=== PATIENT | male | born 1960 | race Hispanic/Latino ===

== ENCOUNTER 2018-06-05 05:46 | Day surgery (SDC) | payer OTHER ==
[2018-06-03 11:41] LABS: APPEARANCE,URINE Clear (CLEAR); BILIRUBIN,URINE Negative (NEGATIVE); COLOR,URINE Yellow (YELLOW); GLUCOSE, URINE (UA) >=1000 mg/dL (NEGATIVE); KETONES,URINE Trace mg/dL (NEGATIVE); LEUKOCYTE ESTERASE ,URINE Negative (NEGATIVE); NITRATE,URINE Negative (NEGATIVE); OCCULT BLOOD,URINE Negative (NEGATIVE); PROTEIN,URINE POS 2+ (NEGATIVE)
[2018-06-03 11:42] LABS: CREATININE 1.4 mg/dL (0.5-1.5); POTASSIUM 4.4 mmol/L (3.5-5.1)
[2018-06-03 11:45] LABS: PROTHROMBIN TIME 9.9 SEC (9.6-11.6)
[2018-06-03 11:46] LABS: BASOPHILS % (AUTO) 0.9 % (0.0-5.0); EOSINOPHILS % (AUTO) 1.9 % (0.0-8.0); HEMATOCRIT 43.8 % (42-54); INR 0.94 (0.85-1.15); LYMPHOCYTES % (AUTO) 18.1 % (21.0-51.0); MEAN CORPUSCULAR HEMOGLOBIN 30.9 pg (27.0-33.0); MEAN CORPUSCULAR HGB CONC 33.4 g/dL (32.0-36.0); MEAN CORPUSCULAR VOLUME 92.4 fL (79-99); MONOCYTES % (AUTO) 6.3 % (3.0-13.0); NEUTROPHILS % (AUTO) 72.8 % (40.0-77.0); PARTIAL THROMBOPLASTIN TIME 27.9 SEC (26.3-35.5); PLATELET COUNT (AUTO) 195 K/uL (130-400); RED BLOOD CELL COUNT(AUTO) 4.74 MIL/uL (4.50-6.20); RED CELL DISTRIBUTION WIDTH 14.8 % (11.0-15.5); WHITE BLOOD COUNT (AUTO) 6.3 K/uL (4.8-10.8)
[2018-06-03 12:01] LABS: BACTERIA,URINE Rare /HPF (None Seen); MUCUS,URINE Rare LPF (None Seen); RBC,URINE 0-1 /HPF (0-1); SQUAMOUS EPITHELIAL CELL,UR Rare /HPF (0-2); WBC,URINE 0-1 /HPF (0-1)
[2018-06-03 12:29] VITALS: BP 136/80
[2018-06-05] VITALS (10 sets, daily range): BP systolic 125–155; BP diastolic 87–109
[~2018-06-05] VITALS: Ht 179.1 cm; Wt 117.9 kg
[~2018-06-05 05:46] MED LIST: AEC81 PO; ATOR10TA69 PO; DILT180C51 PO; FARXIGA; FURO20TA6 PO; HYDR-4154 PO; ISOS30TA6 PO; LISI-613 PO; METF-444 PO; METOPROLOL ER PO; SPIRONOLACTONE
[2018-06-05] MEDS ORDERED: SODIUM CHLORIDE 0.9% 1000ML 1,000 ML IV SCH (06:00)
[2018-06-05] MEDS ORDERED: SODIUM CHLORIDE 0.9% 500ML 500 ML IV SCH (06:00)
[2018-06-05] MEDS ORDERED: SPIR50TA5 PO (07:13)
[2018-06-05] MEDS ORDERED: DAPA10TA PO (07:13)
[2018-06-05] MEDS ORDERED: METOPROLOL TARTRATE 25 MG TAB PO SCH (07:30)
[2018-06-05] MEDS ORDERED: HEPARIN SODIUM 1000UNIT/ML 10ML VIAL ONE (12:13)
[2018-06-05] MEDS ORDERED: SODIUM BICARB 50MEQ 50ML VIAL ONE (12:13)
[2018-06-05] MEDS ORDERED: NITROGLYCERIN 5 MG/ML 10 ML VIAL IV ONE (12:13)
[2018-06-05] MEDS ORDERED: IOHEXOL 350 MG/ML 100ML INFUS..BTL IV ONE (12:14)
[2018-06-05] MEDS ORDERED: IOHEXOL-350 50ML VIAL IV ONE (12:14)
[2018-06-05] MEDS ORDERED: LIDOCAINE HCL 2% 20ML ONE (12:14)
[2018-06-05] MEDS ORDERED: MEPERIDINE-PF 25 MG/ML SYG ONE ×2 (12:39→12:53)
[2018-06-05] MEDS ORDERED: MIDAZOLAM HCL 1 MG/ML 2ML VIAL ONE ×2 (12:39→12:53)
[2018-06-05] MEDS ORDERED: DEXTROSE 50%-WATER 50 ML DISP.SYRIN IV PRN (13:30)
[2018-06-05] MEDS ORDERED: GLUCAGON 1MG KIT 1 MG ML IM PRN (13:30)
[2018-06-05] MEDS ORDERED: SODIUM CHLORIDE 0.9% 10 ML VIAL IVP SCH (13:30)
[2018-06-05] MEDS ORDERED: INSULIN HUMULIN R 100 UNIT/ML 3ML SQ SCH (16:30)
== END 2018-06-05 17:35 | disposition home or self-care (01) ==
LOC: DAH 05:46
PROVIDERS: ATTEND Internal Medicine Cardiovascular Disease
DX: I25.118 Atherosclerotic heart disease of native coronary artery with other forms of angina pectoris (principal); Z79.899 Other long term (current) drug therapy; Z79.84 Long term (current) use of oral hypoglycemic drugs; Z79.4 Long term (current) use of insulin; Z68.37 Body mass index [BMI] 37.0-37.9, adult; I48.2 Chronic atrial fibrillation; E66.9 Obesity, unspecified; G47.33 Obstructive sleep apnea (adult) (pediatric); Z79.01 Long term (current) use of anticoagulants; I25.5 Ischemic cardiomyopathy; Q25.46 Tortuous aortic arch
CPT/HCPCS: 36415; 71045; 80048; 81001; 82948 ×3; 85025; 85610; 85730; 93005; 93458; 93567; C1760; C1769; C1894; J1644; J2175 ×2; J2250 ×2; J3490 ×3; Q9965; Q9967 ×2; 99156; 99157

== ENCOUNTER 2019-01-15 07:40 | Observation (INO) | payer OTHER ==
[2019-01-13 10:47] VITALS: BP 173/95
[2019-01-13 10:49] LABS: BASOPHILS % (AUTO) 2.5 % (0.0-5.0); EOSINOPHILS % (AUTO) 2.3 % (0.0-8.0); HEMATOCRIT 45.4 % (42-54); LYMPHOCYTES % (AUTO) 11.4 % (21.0-51.0); MEAN CORPUSCULAR HEMOGLOBIN 31.5 pg (27.0-33.0); MEAN CORPUSCULAR HGB CONC 33.8 g/dL (32.0-36.0); MEAN CORPUSCULAR VOLUME 93.2 fL (79-99); MONOCYTES % (AUTO) 7.3 % (3.0-13.0); NEUTROPHILS % (AUTO) 76.5 % (40.0-77.0); PLATELET COUNT (AUTO) 179 K/uL (130-400); RED BLOOD CELL COUNT(AUTO) 4.88 MIL/uL (4.50-6.20); RED CELL DISTRIBUTION WIDTH 13.4 % (11.0-15.5); WHITE BLOOD COUNT (AUTO) 7.7 K/uL (4.8-10.8)
[2019-01-13 10:54] LABS: CREATININE 1.2 mg/dL (0.5-1.5); POTASSIUM 4.4 mmol/L (3.5-5.1)
[2019-01-13 11:38] LABS: INR 0.95 (0.85-1.15)
[~2019-01-15] VITALS: Ht 175.3 cm; Wt 119.0 kg
[~2019-01-15 07:40] MED LIST changes: +ALBU8.5H8 IH; +CEFAZOLIN SODIUM 1 GM VIAL IVP SCH; -DILT180C51 PO; -FARXIGA; -ISOS30TA6 PO; -METF-444 PO; +METO-409 PO; -METOPROLOL ER PO; +POTA20TA82 PO; +SODIUM CHLORIDE 0.9% 1000ML 1,000 ML IV SCH; +SPIR50TA5 PO; -SPIRONOLACTONE
[2019-01-15 08:14] VITALS: BP 138/93
[2019-01-15] MEDS ORDERED: EMPA1TAB21 PO (08:48)
[2019-01-15] MEDS ORDERED: ATOR40TA69 PO (08:48)
[2019-01-15] MEDS ORDERED: ISOS30TA6 PO (08:48)
[2019-01-15 13:45] VITALS: BP 132/99
[2019-01-15] MEDS ORDERED: CEFAZOLIN SODIUM 1 GM VIAL ONE (14:52)
[2019-01-15] MEDS ORDERED: IODIXANOL 320 MG/ML 100 ML VIAL ONE (14:53)
[2019-01-15] MEDS ORDERED: LIDOCAINE HCL 1% MDV 50ML VIAL ONE (14:53)
[2019-01-15] MEDS ORDERED: MIDAZOLAM HCL 1 MG/ML 2ML VIAL ONE ×3 (14:53→15:48)
[2019-01-15] MEDS ORDERED: MEPERIDINE-PF 25 MG/ML SYG ONE ×3 (14:53→15:48)
[2019-01-15] MEDS ORDERED: BUPIVACAINE/PF 0.25% 10ML VIAL IJ ONE (14:53)
[2019-01-15] MEDS ORDERED: METOPROLOL TARTRATE 1 MG/ML 5ML VIAL IV ONE ×3 (16:16→16:49)
[2019-01-15] MEDS ORDERED: OCTYL 2-CYANOACRYLATE 1 EACH TP ONE (16:31)
[2019-01-15] MEDS ORDERED: DIGOXIN 250 MCG/ML 2ML AMP ONE (17:02)
[2019-01-15] MEDS ORDERED: HYDRALAZINE HCL 25 MG TABLET PO PRN (17:15)
[2019-01-15] MEDS ORDERED: ACETAMINOPHEN 325 MG TAB PO PRN ×2 (17:15→20:30)
[2019-01-15] MEDS ORDERED: DIGOXIN 250 MCG/ML 2ML AMP IV SCH (17:15)
[2019-01-15] MEDS ORDERED: ONDANSETRON HCL 4 MG/2 ML VIAL IV PRN (17:15)
[2019-01-15] MEDS ORDERED: PHARMACY COMMUNICATION MISC SCH (20:00)
[2019-01-15 20:15] VITALS: BP 148/106
[2019-01-15] MEDS ORDERED: NITROGLYCERIN 0.4 MG SL TAB SL PRN (20:30)
[2019-01-15] MEDS ORDERED: GLUCAGON 1MG KIT 1 MG ML IM PRN (20:30)
[2019-01-15] MEDS ORDERED: DEXTROSE 50%-WATER 50 ML DISP.SYRIN IV PRN (20:30)
[2019-01-15] MEDS: INSULIN HUMULIN R 100 UNIT/ML 3ML SQ SCH (21:00)
[2019-01-15] MEDS ORDERED: ATORVASTATIN CALCIUM 40 MG TABLET PO SCH (21:00)
[2019-01-15] MEDS: LISINOPRIL 20 MG TABLET PO SCH (21:06)
[2019-01-15] MEDS: FAMOTIDINE 20MG TAB 20 MG TAB PO SCH (21:10)
[2019-01-15] MEDS: CEFAZOLIN SODIUM 1 GM VIAL IVP SCH (21:10)
[2019-01-15 23:18] VITALS: BP 153/110
[2019-01-16 03:38] LABS: BASOPHILS % (AUTO) 1.9 % (0.0-5.0); EOSINOPHILS % (AUTO) 0.8 % (0.0-8.0); HEMATOCRIT 42.7 % (42-54); LYMPHOCYTES % (AUTO) 11.4 % (21.0-51.0); MEAN CORPUSCULAR HEMOGLOBIN 32.2 pg (27.0-33.0); MEAN CORPUSCULAR HGB CONC 34.5 g/dL (32.0-36.0); MEAN CORPUSCULAR VOLUME 93.3 fL (79-99); MONOCYTES % (AUTO) 9.7 % (3.0-13.0); NEUTROPHILS % (AUTO) 76.2 % (40.0-77.0); PLATELET COUNT (AUTO) 156 K/uL (130-400); RED BLOOD CELL COUNT(AUTO) 4.58 MIL/uL (4.50-6.20); RED CELL DISTRIBUTION WIDTH 12.9 % (11.0-15.5)
[2019-01-16 03:49] LABS: CREATININE 1.3 mg/dL (0.5-1.5); MAGNESIUM 1.9 mg/dL (1.80-2.40); POTASSIUM 3.9 mmol/L (3.5-5.1)
[2019-01-16 04:12] VITALS: BP 161/102
[2019-01-16] MEDS: CEFAZOLIN SODIUM 1 GM VIAL IVP SCH (05:05)
[2019-01-16] MEDS: INSULIN HUMULIN R 100 UNIT/ML 3ML SQ SCH ×2 (06:46→12:10)
[2019-01-16] MEDS: FAMOTIDINE 20MG TAB 20 MG TAB PO SCH (07:33)
[2019-01-16] MEDS: LISINOPRIL 20 MG TABLET PO SCH (07:33)
[2019-01-16 07:34] VITALS: BP 154/102
[2019-01-16] MEDS ORDERED: ISOSORBIDE MONO 30MG TAB SR PO ONE (07:36)
[2019-01-16] MEDS ORDERED: SPIRONOLACTONE 25 MG TAB PO SCH (09:00)
[2019-01-16] MEDS ORDERED: EMPAGLIFLOZIN PO SCH (09:00)
[2019-01-16] MEDS ORDERED: Metoprolol Succinate 100 MG PO SCH (09:00)
[2019-01-16] MEDS ORDERED: VENTOLIN HFA IH SCH (09:00)
[2019-01-16] MEDS ORDERED: ASPIRIN 81 MG EC TAB PO SCH (09:00)
[2019-01-16] MEDS ORDERED: METFORMIN HCL PO SCH (09:00)
[2019-01-16] MEDS ORDERED: POTASSIUM CHLORIDE 20 MEQ ERTAB PO SCH (09:00)
[2019-01-16] MEDS ORDERED: ISOSORBIDE MONO 30MG TAB SR PO SCH (09:00)
[2019-01-16 11:16] VITALS: BP 140/95
[2019-01-16] MEDS ORDERED: FUROSEMIDE 20 MG TABLET PO SCH (12:00)
[2019-01-16 12:28] VITALS: BP 143/92
== END 2019-01-16 13:45 | disposition home or self-care (01) ==
LOC: DAH 07:40 → 2AH 07:41
PROVIDERS: ADMIT Internal Medicine; ATTEND Internal Medicine
DX: I25.5 Ischemic cardiomyopathy (principal); I11.0 Hypertensive heart disease with heart failure; I50.42 Chronic combined systolic (congestive) and diastolic (congestive) heart failure; D68.59 Other primary thrombophilia; E66.9 Obesity, unspecified; G47.33 Obstructive sleep apnea (adult) (pediatric); I42.0 Dilated cardiomyopathy; I48.2 Chronic atrial fibrillation; Z68.38 Body mass index [BMI] 38.0-38.9, adult; Z91.19 Patient's noncompliance with other medical treatment and regimen; Z95.0 Presence of cardiac pacemaker; F19.90 Other psychoactive substance use, unspecified, uncomplicated; Z83.3 Family history of diabetes mellitus; Z79.899 Other long term (current) drug therapy
CPT/HCPCS: 33224; 33249; 36415 ×2; 71046; 80048 ×2; 82948 ×6; 83735; 85025 ×2; 85610; 85730; 93005 ×2; 96372 ×2; 96374; 96376; A4606; C1769 ×2; C1882; C1894; C1895 ×2; C1900; G0378 ×21; J0690 ×3; J1160; J1815 ×2; J2175 ×3; J2250 ×3; J3490 ×5; J7030; Q9967; 99156; 99157